=== PATIENT | female | born 1980 | race Caucasian/White ===

== ENCOUNTER 2016-11-07 13:54 | Emergency (ER) | payer BC, OTHER ==
[2016-11-07 17:03] VITALS: BP 120/76
--- NOTE | 2016-11-07 18:35 | UC ---
Skin Complaint HPI - HPI Summary HPI Summary: PATIENT ARRIVES TO WITH CC OF DIFFUSE PUSTULE RASH OVER BODY X 2 DAYS. SHE STATES SHE HAD HER HAIR DYED 5 DAYS AGO, AND COULD HAVE CAUSED A REACTION, BUT RASH IS NOT WORSE ON HEAD THAN BODY. THE RASH IS DIFFUSE, PUSTULAR WITH EXTREME PRURITIS. CONVALESCING PUSTULES LOCATED ON ANTERIOR SHINS BILATERALLY. PATIENT HAS A HISTORY OF PSORIASIS, BUT STATES HAS NEVER BEEN BAD ENOUGH THAT SHE HAS NEEDED TO GO ON MEDICATION. SHE HAS TRIED OTC HYDROCORTISONE AND BENADRYL WITHOUT RELIEF. SHE HAS TRIED OATMEAL BATHS. PUSTULES ARE NOT GETTING BETTER OR WORSE. SHE STATES THE PUSTULES BEGAN ON HER SHINS AROUND THE SITE OF A PSORIASIS PLAQUE AND ARE NOT DIFFUSELY SPREAD THROUGHOUT WITH ONLY CONVALESCING AREAS OVER THE SHINS. SHE ENDORSES CLEAR FLUID FROM THE SITES. SHE HAS NEVER HAD THIS BEFORE AND NOTHING HAS MADE IT BETTER. SHE STATES SHE HAS NEVER HAD THE CHICKEN POX BEFORE. DENIES FEVER. - History of Current Complaint Chief Complaint: Ras Stated Complaint: RASH Hx Obtained From: Patient Hx Last Menstrual Period: 10/17/16 ?: No Onset/Duration: Sudden Onset Skin Exposure Onset/Duration: Days Ago Timing: Constant Onset Severity: Severe Current Severity: Severe Pain Intensity: 0 Pain Scale Used: Adult Non Verbal Location: Diffuse Character: Swelling, Pruritus, Hives, Redness, Raised Aggravating: Nothing Alleviating: Nothing, Unknown Associated Signs & Symptoms: Positive: Negative Related History: Possible Reaction to: Environmental Exposure - HAIR DYE - Allergy/Home Medications Allergies/Adverse Reactions: Allergies Allergy/AdvReac Type Severity Reaction Status Date / Time No Known Allergies Allergy Verified 11/07/16 16:56 Home Medications: Home Medications Folic Acid 20 mg PO 11/07/16 [History] Lamotrigine [Lamictal] 100 mg PO 11/07/16 [History] Oxcarbazepine [Trileptal 600 MG tab] 600 mg PO 11/07/16 [History] clonazePAM TAB(*) [KlonoPIN TAB(*)] 1 mg PO BEDTIME PRN 11/07/16 [History Confirmed 11/07/16] Review of Systems Constitutional: Negative Skin: Rash Eyes: Negative ENT: Negative Respiratory: Negative Cardiovascular: Negative Gastrointestinal: Negative Neurovascular: Negative Psychological: Negative All Other Systems Reviewed And Are Negative: Yes PMH/Surg Hx/FS Hx/Imm Hx Previously Healthy: Yes - Surgical History Surgical History: None - Family History Known Family History: Positive: Unknown - Social History Occupation: Employed Full-time Lives: With Family Alcohol Use: None Substance Use Type: None Smoking Status (MU): Never Smoked Tobacco Physical Exam Triage Information Reviewed: Yes Appearance: Well-Appearing, Well-Nourished Vital Signs: Initial Vital Signs Temp 98.7 F 11/07/16 16:50 Pulse 67 11/07/16 16:50 Resp 20 11/07/16 16:50 BP 120/76 11/07/16 16:50 Pulse Ox 100 11/07/16 16:50 Vital Signs Reviewed: Yes Eye Exam: Normal Eyes: Positive: Conjunctiva Clear ENT Exam: Normal ENT: Positive: Normal ENT inspection Dental Exam: Normal Neck exam: Normal Neck: Positive: Supple, No Lymphadenopathy Respiratory Exam: Normal Respiratory: Positive: Chest non-tender Cardiovascular Exam: Normal Cardiovascular: Positive: RRR Musculoskeletal: Positive: Strength Intact, No Edema Skin: Positive: rashes - DIFFUSE PUSTULAR RASH OVER ENTIRE BODY INCLUDING FACE, PRURITIS Course/Dx - Course Course Of Treatment: PATIENT TREATED FOR DERMATITIS. SOME PUSTULES HAD DEW DROP ON A WENDY PETAL LOOK AND PATIENT DENIES OFFICIAL CHICKEN POX A CHILD. PREDNISONE AND ATARAX GIVEN PRESCRIPTION. ENCOURAGED HYDROCORTISONE NEEDED. FOLLOW UP WITH PCP OR SEE A ZONING ENGINEER. PATIENT TAKEN OUT OF WORK UNTIL SATURDAY IN CASE THIS IS CHICKEN POX. - Differential Diagnoses - Skin Complaint Differential Diagnoses: Contact Dermatitis, Drug Rash, Impetigo, Varicella Zoster - Diagnoses Provider Diagnoses: DERMATITIS Discharge - Discharge Plan Condition: Stable Disposition: HOME Prescriptions: hydrOXYzine HCL TAB* [Atarax 25 MG TAB*] 25 mg PO QID PRN #20 tab MDD 4 PRN Reason: Pain predniSONE TAB* [Deltasone TAB*] 50 mg PO DAILY #6 tab Patient Education Materials: Dermatitis (ED) Forms: *Work Release Referrals: Ming Deng MD [Primary Care Provider] - Additional Instructions: Take prednisone and atarax as prescribed follow up with PCP if symptoms fail to improve, call a video control operator, go see your PCP, or come back to
== END 2016-11-07 18:00 | disposition home or self-care (01) ==
LOC: UCEAST 13:54
DX: L30.9 Dermatitis, unspecified (principal)
CPT/HCPCS: 99212; G0463

== ENCOUNTER → 2018-06-04 | Emergency (ER) | payer BC ==
[~2018-06-04] MED LIST: NS 0.9% 1000 ML* 2,000 ML IV ONE
--- OUTSIDE RECORDS SUMMARY | 2018-06-04 11:14 | XMS REPORT ---
:1980 External Reference #:[id number] Author Organization [employer] Address [address] [place] [address] Phone [phone] Care Team Providers Name Role Phone Sonia Boggs MD Primary Care Physician Unavailable Payers Type Date Identification Numbers Payment Provider Subscriber Commercial Policy Number: [id number] BS Facets Candy Nowak PayID: [id number] [address] [address] [place] [address] Problems Date Description Provider Status Onset: 11/27/2016 Seizure disorder Roney Fox NP Active Onset: 02/24/2018 Impacted nicoumen Sal Forbes M.D. Active Onset: 02/24/2018 Acute otitis externa Sal Forbes M.D. 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 Smoked Cigarettes Cigars Never Smoked Cigars Pipe Never Smoked A Pipe Smokeless Tobacco Never Used Smokeless Tobacco ETOH Use Denies alcohol use Smoking Patient has never smoked Recreational Drug Use Denies Drug Use Daily Caffeine Consumes on average 4 cups of regular coffee per day Exercise Type/Frequency Exercises regularly Allergies, Adverse Reactions, Alerts Date Description Reaction Status Severity Comments 08/27/2016 NKDA active Medications Medication Date Status Form Strength Qnty SIG Indications Ordering Provider Sulfamethoxazole/ 05/07/ Hx Tablets 800-160mg 14tab one by N39.0 Karie Trimethoprim DS 2018 - s mouth Varn, 05/14/ twice a N.P. 2018 day for 7 days Phenazopyridine 05/07/ Hx Tablets 100mg 9tabs 1 tablet N39.0 Karie HCL 2018 - by mouth Varn, 05/10/ three N.P. 2018 times a day as needed Clonazepam / Active Tablets 1mg 1 tab at Unknown 0000 bedtime Oxcarbazepine / Active Tablets 600mg 1 tab by Unknown 0000 mouth three times daily Lamotrigine / Active Tablets 100mg 3 tabs in Unknown 0000 am, 2 tab in afternoon and 4tabs at bedtime Folic Acid / Active Tablets 1mg take one Unknown 0000 tablet daily by mouth Formula / Active Capsules 28-0.8-235 1 tab Unknown 0000 mg daily by mouth Amoxicillin/Clavu 04/01/ Hx Tablets 875-125mg 20tab take one Roney lanate Potassium 2016 - s tablet q12 IMAN Fox 04/11/ hours for 2017 10 days Tramadol HCL 04/01/ Hx Tablets 50mg 28tab 1-2 H92.03 Roney 2017 - s tablets IMAN Fox 04/09/ every 12 2017 hours as needed for pain. Mupirocin 11/22/ Hx Ointment 2% 22uni apply thin R21 Roney 2017 - ts film of IMAN Fox 11/22/ ointment 2017 to the affected area(s) three times daily for 10-14 days Betamethasone 11/22/ Hx Cream 0.05% 45gm apply thin R21 Roney Dipropionate 2017 - layer to IMAN Fox 11/22/ affected 2017 areas twice daily. Vital Signs Date Vital Result Comment 05/07/2018 Height 69 inches 5'9" Weight 152.00 lb Heart Rate 68 /min BP Systolic 120 mmHg BP Diastolic 77 mmHg Body Temperature 97.4 F O2 % BldC Oximetry 100 % BMI (Body Mass Index) 22.4 kg/m2 02/24/2018 Height 69 inches 5'9" Weight 158.00 lb Heart Rate 78 /min BP Systolic Sitting 120 mmHg BP Diastolic Sitting 62 mmHg Respiratory Rate 18 /min Pain Level 0 BMI (Body Mass Index) 23.3 kg/m2 04/01/2017 Heart Rate 63 /min BP Systolic Sitting 118 mmHg BP Diastolic Sitting 80 mmHg Body Temperature 98.6 F O2 % BldC Oximetry 98 % 11/22/2016 Height 68 inches 5'8" Weight 162.50 lb Heart Rate 68 /min BP Systolic Sitting 100 mmHg BP Diastolic Sitting 60 mmHg Respiratory Rate 16 /min Body Temperature 99.1 F BMI (Body Mass Index) 24.7 kg/m2 08/27/2016 Height 69 inches 5'9" Weight 148.00 lb Heart Rate 64 /min BP Systolic Sitting 104 mmHg BP Diastolic Sitting 60 mmHg Respiratory Rate 16 /min Pain Level 0 BMI (Body Mass Index) 21.9 kg/m2 Results Test Date Test Result H/L Range Note CBC Auto Diff 08/09/2017 White Blood Count 7.2 10^3/uL 3.5-10.8 Red Blood Count 4.11 10^6/uL 4.0-5.4 Hemoglobin 13.8 g/dL 12.0-16.0 Hematocrit 40 % 35-47 Mean Corpuscular Volume 97 fL 80-97 Mean Corpuscular Hemoglobin 33 pg High 27-31 Mean Corpuscular HGB Conc 34 g/dL 31-36 Red Cell Distribution Width 13 % 10.5-15 Platelet Count 182 10^3/uL 150-450 Mean Platelet Volume 8 um3 7.4-10.4 Abs Neutrophils 4.2 10^3/uL 1.5-7.7 Abs Lymphocytes 1.6 10^3/uL 1.0-4.8 Abs Monocytes 0.4 10^3/uL 0-0.8 Abs Eosinophils 0.9 10^3/uL High 0-0.6 Abs Basophils 0.1 10^3/uL 0-0.2 Abs Nucleated RBC 0 10^3/uL Granulocyte % 58.0 % 38-83 Lymphocyte % 22.8 % Low 25-47 Monocyte % 5.6 % 1-9 Eosinophil % 12.8 % High 0-6 Basophil % 0.8 % 0-2 Nucleated Red Blood Cells % 0 Comp Metabolic Panel 08/09/2017 Sodium 130 mmol/L Low 133-145 Potassium 4.0 mmol/L 3.5-5.0 Chloride 97 mmol/L Low 101-111 Co2 Carbon Dioxide 28 mmol/L 22-32 Anion Gap 5 mmol/L 2-11 Glucose 80 mg/dL 70-100 Blood Urea Nitrogen 10 mg/dL 6-24 Creatinine 0.82 mg/dL 0.51-0.95 BUN/Creatinine Ratio 12.2 8-20 Calcium 8.3 mg/dL Low 8.6-10.3 Total Protein 5.8 g/dL Low 6.4-8.9 Albumin 3.8 g/dL 3.2-5.2 Globulin 2.0 g/dL 2-4 Albumin/Globulin Ratio 1.9 1-3 Total Bilirubin 0.50 mg/dL 0.2-1.0 Alkaline Phosphatase 65 U/L 34-104 Alt 13 U/L 7-52 Ast 13 U/L 13-39 Egfr Non- 78.9 >60 Egfr 101.4 >60 1 Laboratory test finding 08/09/2017 Magnesium 1.9 mg/dL 1.9-2.7 Quantiferon Gold TB 08/09/2017 M tuberculosis by Negative Negative 2 Quantiferon TB Ag minus Nil Result 0 IU/mL TB Mitogen minus Nil Result > 10.00 IU/mL TB Nil Result 0.02 IU/mL 3 Wound Culture/Sensi 04/01/2017 Wound/Misc Culture-Gram Stain SEE RESULT BELOW 4 1 Because ethnic data is not always readily available, this report includes an eGFR for both -Americans and non- Americans. The National Kidney Disease Education Program (NKDEP) does not endorse the use of the MDRD equation for patients that are not between the ages of 18 and 70, are , have extremes of body size, muscle mass, or nutritional status, or are non- or non-. According to the National Kidney Foundation, irrespective of diagnosis, the stage of the disease is based on the level of kidney function: Stage Description GFR(mL/min/1.73 m(2)) 1 Kidney damage with normal or decreased GFR 90 2 Kidney damage with mild decrease in GFR 60-89 3 Moderate decrease in GFR 30-59 4 Severe decrease in GFR 15-29 5 Kidney failure <15 (or dialysis) 2 No interferon-gamma response to M. tuberculosis antigens was detected. Infection with M. tuberculosis is unlikely. A negative result alone does not exclude infection with M. tuberculosis. For detailed information regarding test interpretation see: www.Voolgo/test-catalog/ Clinical+and+Interpretive/48591 3 Test Performed by: [facility] - [facility] [address] [place] [address], [place] [address] 4 SEE RESULT BELOW Name: CANDY NOWAK : [address]: Roney Fox NP Acct: [id number] Unit: [id number] AGE: 36 Location: [facility] Re04/01/17 SEX: F Status: REG REF SPEC: [id number] ABELINO: 04/01/17-[address]: Roney Fox NP REQ: [id number] RECD: 04/01/17 STATUS: COMP _ SOURCE: MISC SOURC SPDESC: ORDERED: Culture Stain COMMENTS: [id number] Specimen Description ear exudate Procedure Result Reported Site Wound/Misc Gram Stain Final 04/02/17- 730 ML 1+ Neutrophils 1+ Epithelial Cells 4+ Gram Positive Bacilli Wound/Misc Culture Final 04/03/17- 1100 ML Organism 1 NORMAL LOREE Quantity 1+ * ML - MAIN LAB ([facility]) . END OF REPORT * ML=Testing performed at Main Lab DEPARTMENT OF PATHOLOGY, [address] [place] [address] Jt Espinoza M.D. Director [facility] # [id number] Procedures Date CPT Code Description Status 02/24/2018 29152 Remove Impacted Cerumen Completed 10/11/2017 06585 Biopsy Skin Lesion Single Completed Encounters Type Date Location Provider CPT E/M Dx Office Visit 02/24/2018 [facility], [address] H60.541 3:45p [facility] [place] H61.23 Office Visit 10/11/2017 8:20a [facility] [place] [address] Z79.899 L30.9 Office Visit 08/06/2017 4:10p [facility] [place] [address] L40.0 Office Visit 07/01/2017 4:30p [facility] [place] [address] L40.0 Office Visit 04/01/2017 2:20p [facility] [place] [address] H92.03 Peculiar Office Visit 12/21/2016 10:10a [facility] [place] [address] L40.0 Office Visit 12/10/2016 8:00a [facility] [place] [address] L30.9 L82.1 L91.8 Office Visit 11/23/2016 8:20a [facility] [place] [address] L30.9 Office Visit 11/22/2016 3:40p [facility] [place] [address] R21 - Peculiar Office Visit 08/27/2016 10:00a [facility], [address] G56.01 Haris Hunt G56.02 R20.0 R20.2 Plan of Care 05/07/2018 - Karie Verma N.P.N39.0 Urinary tract infection, site not specifiedNew Medication:Sulfamethoxazole/Trimethoprim DS 800-160 mgPhenazopyridine HCL 100 mgNew Labs:Ua RoutineUrine Culture And SensitivitiesComments:For your urinary tract infection:I sent a prescription to the pharmacy for Bactrim DS, take one by mouth twice daily for 7 days.Avoid bladder irritants: coffee, tea, sterling, alcohol, and spicy foods.I am sending a specimen for culture, the office will call if you need a different antibiotic. If symptoms persist call the office.
--- OUTSIDE RECORDS SUMMARY | 2018-06-04 11:14 | XMS REPORT ---
:1980 External Reference #:[id number] Author Organization [employer] Address [address] [place] [address] Phone [phone] Care Team Providers Name Role Phone Sonia Boggs MD Primary Care Physician Unavailable Payers Type Date Identification Numbers Payment Provider Subscriber Commercial Policy Number: [id number] BS [employer]ets Tran Nowak PayID: [id number] [address] [address] [place] [address] Problems Date Description Provider Status Onset: 11/27/2016 Seizure disorder Roney Fox NP Active Onset: 02/24/2018 Impacted cerumen Sal Forbes M.D. Active Onset: 02/24/2018 Acute otitis externa Sal Forbes M.D. 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 Cigarette Use Never Smoked Cigarettes Cigars Never [...] Form Strength Qnty SIG Indications Ordering Provider Clonazepam 00/00/ Active Tablets 1mg 1 tab at Unknown 0000 bedtime Oxcarbazepine 0000/ Active Tablets 600mg 1 tab by Unknown 0000 mouth three times daily Lamotrigine / Active Tablets 100mg 3 tabs in Unknown 0000 am, 2 tab in afternoon and 4tabs at bedtime Folic Acid / Active Tablets 1mg take one Unknown 0000 tablet daily by mouth Formula / Active Capsules 28-0.8-235 1 tab Unknown 0000 mg daily by mouth Sulfamethoxazole/ 05/07/ Hx Tablets 800-160mg 14tab one by N39.0 Karie Trimethoprim DS 2018 - s mouth Varn, 05/14/ twice a N.P. 2018 day for 7 days Phenazopyridine 05/07/ Hx Tablets 100mg 9tabs 1 tablet N39.0 Karie HCL 2018 - by mouth Varn, 05/10/ three N.P. 2018 times a day as needed Amoxicillin/Clavu 04/01/ Hx Tablets 875-125mg 20tab take [...] daily. Vital Signs Date Vital Result Comment 05/21/2018 Height 69 inches 5'9" Weight 150.00 lb Heart Rate 74 /min BP Systolic 100 mmHg BP Diastolic 60 mmHg Body Temperature 97.4 F O2 % BldC Oximetry 98 % BMI (Body Mass Index) 22.1 kg/m2 05/07/2018 Height 69 inches 5'9" Weight 152.00 [...] Test Date Test Result H/L Range Note Ua Routine 05/07/2018 Ua Specific [place] 1.020 Ua PH 5 Ua Color dark yellow Ua Appera cloudy Ua WBC trace Ua Protein +30 Ua Glucose normal Ua Ketones neg. Ua Bilirubin neg. Ua Urobilinogen normal Ua Nitrite neg Ua Occult Blood about 250 Yohannes/ul Urine Culture And 05/07/2018 Urine Culture SEE RESULT BELOW 1 Sensitivities CBC Auto Diff 08/09/2017 White Blood Count [...] Egfr Non- 78.9 >60 Egfr 101.4 >60 2 Laboratory test finding 08/09/2017 Magnesium 1.9 mg/dL 1.9-2.7 Quantiferon Gold TB 08/09/2017 M tuberculosis by Negative Negative 3 Quantiferon TB Ag minus Nil Result 0 IU/mL TB Mitogen minus Nil Result > 10.00 IU/mL TB Nil Result 0.02 IU/mL 4 Wound Culture/Sensi 04/01/2017 Wound/Misc Culture-Gram Stain SEE RESULT BELOW 5 1 SEE RESULT BELOW Name: TRAN NOWAK : [address]: Karie Verma NP Acct: [id number] Unit: [id number] AGE: 37 Location: [facility] Re05/07/18 SEX: F Status: REG REF SPEC: [id number] ABELINO: 05/07/181402 SUBM DR: Karie Verma NP REQ: [id number] RECD: 05/07/18 STATUS: COMP _ SOURCE: URINE SPDESC: ORDERED: Urine Culture COMMENTS: [id number] Urine Source: Random Procedure Result Reported Site Urine Culture Final 05/09/18- 09 ML Mixed loree; possible contamination. Suggest resubmission. * ML - Main Lab . END OF REPORT DEPARTMENT OF PATHOLOGY, [address] [place] [address] Jt Espinoza M.D. Director [facility] # [id number] 2 Because ethnic data is not always readily [...] 15-29 5 Kidney failure <15 (or dialysis) 3 No interferon-gamma response to M. tuberculosis antigens was detected. Infection with M. tuberculosis is unlikely. A negative result alone does not exclude infection with M. tuberculosis. For detailed information regarding test interpretation see: www.ClearAccess/test-catalog/ Clinical+and+Interpretive/59227 4 Test Performed by: [facility] - [address] [address] 5 SEE RESULT BELOW Name: TRAN NOWAK : [address]: Roney Fox EXCHANGE TELLER Acct: [id number] Unit: [id number] AGE: 36 Location: [facility] Re04/01/17 SEX: F Status: REG REF SPEC: [id number] ABELINO: 04/01/17-[address]: Roney Fox NP REQ: [id number] RECD: 04/01/17 STATUS: COMP _ SOURCE: MISC SOURC SPDESC: ORDERED: Culture Stain COMMENTS: [id number] Specimen Description ear exudate Procedure Result Reported Site Wound/Misc Gram Stain Final 04/02/17- 0731 ML 1+ Neutrophils 1+ Epithelial Cells 4+ Gram Positive Bacilli Wound/Misc Culture Final 04/03/17- 1100 ML Organism 1 NORMAL LOREE Quantity 1+ * ML - MAIN LAB ([facility]) . END OF REPORT * ML=Testing performed at Main Lab DEPARTMENT OF PATHOLOGY, [address] [place] [address] Jt Espinoza M.D. Director [facility] # [id number] Procedures Date CPT Code Description Status 02/24/2018 60408 Remove Impacted Cerumen Completed 10/11/2017 12809 Biopsy Skin Lesion Single Completed Encounters Type Date Location Provider CPT E/M Dx Office Visit 05/07/2018 [facility] [place] [address] L23.9 7:50a Office Visit 02/24/2018 [facility], [address] H60.541 3:45p AT [place] H61.23 Office Visit 10/11/2017 8:20a [facility] [place] [address] Z79.899 L30.9 Office Visit 08/06/2017 4:10p [facility] [place] [address] L40.0 Office Visit 07/01/2017 4:30p [facility] [place] [address] L40.0 Office Visit 04/01/2017 2:20p [facility] [place] [address] H92.03 [place] Office Visit 12/21/2016 10:10a [facility] [place] [address] L40.0 Office Visit 12/10/2016 8:00a [facility] [place] [address] L30.9 L82.1 L91.8 Office Visit 11/23/2016 8:20a [facility] [place] [address] L30.9 Office Visit 11/22/2016 3:40p [facility] [place] [address] R21 - [place] Office Visit 08/27/2016 10:00a [facility], [address] G56.01 Haris Hunt G56.02 R20.0 R20.2 Plan of Care 05/21/2018 - Karie Verma NAshPAshN39.0 Urinary tract infection, site not specifiedNew Labs:Ua RoutineComments:For your urinary symptomsI am sending a specimen for culture, the office will contact you.R53.81 Other malaiseComments: To further evaluate your fatigue I have oerdered a series of blood tests. I will contact you with your results.
[2018-06-04 12:00] LABS: ABS Basophils 0 10^3/ul (0-0.2); ABS Eosinophils 0.2 10^3/ul (0-0.6); ABS Lymphocytes 1.4 10^3/ul (1.0-4.8); ABS Monocytes 0.5 10^3/ul (0-0.8); ABS Neutrophils 4.4 10^3/ul (1.5-7.7); ABS Nucleated RBC 0 10^3/ul; Eosinophil % 2.4 % (0-6); Hematocrit 39 % (35-47); Hemoglobin 13.3 g/dl (12.0-16.0); Mean Corpuscular HGB Conc 35 g/dl (31-36); Mean Corpuscular Hemoglobin 34 pg (27-31); Mean Corpuscular Volume 98 fL (80-97); Mean Platelet Volume 7.3 um3 (7.4-10.4); Nucleated Red Blood Cells % 0; Platelet Count 157 10^3/ul (150-450); Red Blood Count 3.94 10^6/ul (4.00-5.40); Red Cell Distribution Width 12 % (10.5-15); White Blood Count 6.5 10^3/ul (3.5-10.8)
[2018-06-04 12:06] LABS: INR 0.93 (0.77-1.02)
--- NOTE | 2018-06-04 12:11 | ED ---
Neurological HPI - HPI Summary HPI Summary: This patient is a 37 year old F presenting to [facility] accompanied by her Nickolas with a chief complaint of gradual onset bilateral blurry vision, left arm numbness and left hand numbness since 1020am today. PMHx petit-mal seizures. Pt was sitting at work and became unable to focus secondary to bilateral blurred vision, L arm numbness, weakness, and paresthesia down to hand , difficulty ambulating secondary to dizziness, 4/10 CRAWLEY (alleviated with closing eyes), and mild nausea. She denies fever, cough, rhinorrhea, and neck pain. Her neurologist is Dr. Louis at [facility]. Rx lamictal, trileptal, clonazepam 1 mg (anxiety). She denies seizure today, which usually consists of dropping to her knees, putting hands in air, stiffening, no LOC, and lasting for 10 seconds. She does not feel like a seizure is coming on now. She endorses similar sx in past, but they tend to spontaneously resolve more quickly than today. She endorses receiving a flu shot this year. LMP 05/19/18 (normal menses) , denies possibility of . She denies substance use, EtOH use. FHx mother seizure disorder. PMHx eczema BL anterior shins. Pt states her last seizure was months ago, and they are usually brought on by blood level imbalance (hx hyponatremia) or sickness. Pt denies taking anything additional to meds for her sxs today. Pt had an MRI with Dr. Louis in 2018, a few months ago. - History of Current Complaint Chief Complaint: EDNeurologicalDeficit Stated Complaint: DOUBLE VISION,LEFT HAND NUMB Time Seen by Provider: 06/04/18 11:32 Hx Obtained From: Patient, Medical Records - requested, Other: - Hx Last Menstrual Period: 05/19/18 Onset/Duration: Gradual Onset, Still Present Timing: Constant Onset Severity: Moderate Current Severity: Moderate Number of Seizures: 0 Neurological Deficit Location: LUE Headache Location: Diffuse (Right), Diffuse (Left) Pain Intensity: 4 Pain Scale Used: 0-10 Numeric Character: Dizzy, Paresthesia - LUE, Motor Weakness - bilat UE, Sensory Loss - LUE, Visual Changes - blurred Aggravating: Nothing Alleviating: Closing Eyes Associated Signs and Symptoms: Positive: Visual Changes, Headache, Weakness - bilat UE, Dizziness, Numbness - LUE, Nausea/Vomiting - nausea. Negative: Fever , Neck Pain/Stiffness Related Hx: Medication Comliant - compliant, Seizure - petit mal - Allergy/Home Medications Allergies/Adverse Reactions: Allergies Allergy/AdvReac Type Severity Reaction Status Date / Time No Known Allergies Allergy Verified 06/04/18 10:54 Home Medications: Home Medications Folic Acid 20 mg PO DAILY 06/04/18 [History Confirmed 06/04/18] Vit 108/Iron/Folic AC [ One Tablet] 1 each PO DAILY 06/04/18 [ History Confirmed 06/04/18] lamoTRIgine TAB(*) [Lamictal TAB(*)] 200 mg PO .AT NOON 06/04/18 [History Confirmed 06/04/18] lamoTRIgine TAB(*) [Lamictal TAB(*)] 300 mg PO QAM 06/04/18 [History Confirmed 06/04/18] lamoTRIgine TAB(*) [Lamictal TAB(*)] 400 mg PO BEDTIME 06/04/18 [History Confirmed 06/04/18] PMH/Surg Hx/FS Hx/Imm Hx Previously Healthy: No Endocrine/Hematology History: Denies: Hx Sickle Cell Disease Respiratory History: Denies: Hx Lung Cancer Sensory History: Denies: Hx Legally Blind, Hx Deafness Opthamlomology History: Denies: Hx Legally Blind EENT History: Denies: Hx Deafness Neurological History: Reports: Hx Seizures Psychiatric History: Reports: Hx Anxiety - Surgical History Surgery Procedure, Year, and Place: none Infectious Disease History: No Infectious Disease History: Denies: Traveled Outside the [place] in Last 30 Days - Family History Known Family History: Positive: Seizure Disorder - mother - Social History Occupation: Employed Full-time Lives: With Family Alcohol Use: None Substance Use Type: Reports: None Smoking Status (MU): Never Smoked Tobacco Review of Systems Negative: Fever Positive: Blurred Vision Negative: Nasal Discharge Negative: Cough Positive: Nausea Positive: no symptoms reported Negative: Arthralgia - neck Positive: Rash - BLE anterior tibiae Positive: Headache - 4/10, Weakness - BUE, Paresthesia - LUE, Numbness - LUE Psychological: Normal All Other Systems Reviewed And Are Negative: Yes Physical Exam - Summary Physical Exam Summary: Appearance: Well-appearing, minimal pain distress, well-nourished Skin: Warm, color reflects adequate perfusion, dry, eczema on bilateral anterior tibiae Head: Normal Head/Face inspection, atraumatic Eyes: Conjunctiva clear, PERRL, EOMI, no nystagmus ENT: Normal inspection, mucosal membranes moist Neck: Supple, no nodes, no JVD Respiratory: Lungs clear, normal breath sounds, no respiratory distress Cardio: RRR, No murmur, pulses normal, brisk capillary refill Abdomen: Soft, minimal suprapubic tenderness, non-distended, no guarding, no rebound Bowel sounds: Present Musculoskeletal: Strength Intact/ROM intact, no calf tenderness, no edema. Psychological: Normal Neuro: A&O x3, CN II-XII intact, motor function 5/5, sensation intact, cerebellar normal. GCS 15. Has decreased sensation L arm but can tell I am touching her Triage Information Reviewed: Yes Vital Signs On Initial Exam: Initial Vitals Temp Pulse Resp BP Pulse Ox 98.4 F 76 16 133/77 100 06/04/18 10:51 06/04/18 10:51 06/04/18 10:51 06/04/18 10:51 06/04/18 10:51 Vital Signs Reviewed: Yes - Cortez Coma Scale Best Eye Response: 4 - Spontaneous Best Motor Response: 6 - Obeys Commands Best Verbal Response: 5 - Oriented Coma Scale Total: 15 Diagnostics - Vital Signs Vital Signs Temp Pulse Resp BP Pulse Ox 06/04/18 10:51 98.4 F 76 16 133/77 100 - Laboratory Lab Results: Lab Results 06/04/18 Range/Units 11:47 WBC 6.5 (3.5-10.8) 10^3/ul RBC 3.94 L (4.00-5.40) 10^6/ul Hgb 13.3 (12.0-16.0) g/dl Hct 39 (35-47) % MCV 98 H (80-97) fL MCH 34 H (27-31) pg MCHC 35 (31-36) g/dl RDW 12 (10.5-15) % Plt Count 157 (150-450) 10^3/ul MPV 7.3 L (7.4-10.4) um3 Neut % (Auto) 67.3 (38-83) % Lymph % (Auto) 22.0 L (25-47) % [place] % (Auto) 7.6 H (0-7) % Eos % (Auto) 2.4 (0-6) % Baso % (Auto) 0.7 (0-2) % Absolute Neuts (auto) 4.4 (1.5-7.7) 10^3/ul Absolute Lymphs (auto) 1.4 (1.0-4.8) 10^3/ul Absolute Monos (auto) 0.5 (0-0.8) 10^3/ul Absolute Eos (auto) 0.2 (0-0.6) 10^3/ul Absolute Basos (auto) 0 (0-0.2) 10^3/ul Absolute Nucleated RBC 0 10^3/ul Nucleated RBC % 0 Result Diagrams: 06/04/18 11:47 06/04/18 11:47 Lab Statement: Any lab studies that have been ordered have been reviewed, and results considered in the medical decision making process. NIH Scale - NIH Scale Level of Consciousness: Alert/Keenly Responsive Ask Patient the Month and His/Her Age: Both Correct Ask Pt to Open/Close Eyes and Communication Professor/Release Non-Paretic Hand: Both Correctly Best Gaze (Only Horizontal Eye Movement): Normal Visual Field Testing: No Visual Loss Facial Paresis-Pt to Smile & Close Eyes or Grimace Symmetry: Normal/Symmetrical Motor Function - Right Arm: No Drift-Holds 10 Seconds Motor Function - Left Arm: No Drift-Holds 10 Seconds Motor Function - Right Leg: No Drift-Holds 10 Seconds Motor Function - Left Leg: No Drift-Holds 10 Seconds Limb Ataxia-Must be out of Proportion to Weakness Present: Absent Sensory (Use Pinprick to Test Arms/Legs/Trunk/Face): Normal Best Language (Describe Picture, Name Items): No Aphasia Dysarthria (Read Several Words): Normal Extinction and Inattention: No Abnormality Total Score: 0 Re-Evaluation - Re-Evaluation First Eval Re-Evaluation Time: 12:34 Change: Unchanged Comment: Discussing lab tests, MRI, and neuro consult. Still with mild CRAWLEY, declines pain medication. Explained MRI, states she had an MRI in [address] Louis, advised to remain NPO. still with pt. Second Eval Re-Evaluation Time: 14:30 Change: Improved Comment: Per Dr. Villalobos, neurologist, pt may be DC'd without MRI as sxs have improved and pt had MRI a few months ago. Course/Dx - Course Course Of Treatment: A 37-year-old F presents to the ED with a CC of blurred vision and left arm and hand numbness since 1020am today. (+) bilateral blurred vision, L arm numbness, weakness, and paresthesia down to hand, difficulty ambulating secondary to dizziness, 4/10 CRAWLEY (alleviated with closing eyes), and mild nausea. (-) fever, cough, rhinorrhea, SHx, and neck pain. PMHx similar sx, petit-mal szs. Pt was sitting down at work, then gradual onset blurred vision, LUE numbness, dizziness. She denies feeling seizure onset upcoming, denies seizure today or for past couple of months. A typical seizure entails dropping to knees, arms up in air, no LOC, lasting about 10 seconds. In the ED course, pt was given nl saline. Pt labs show low RBC, high MCV, high MCH, low MPV, low lymph %, high mono %, low Na+, low Cl-, and low carbamazepine level. Revieweing lab work from 05/30/18 (hyponatremia) MRI will be at 1445. MRI later cancelled per Dr. Villalobos with pt's resolution of sxs. - Differential Dx Differential Diagnoses Neuro: Positive: Cerebrovascular Accident, Drug Toxicity , Headache, Medication Reaction, Metabolic Abnormality, Migraine, Seizure Disorder - Diagnoses Provider Diagnoses: Acute headache, Hx of seizure disorder, Transient neurological symptoms, Hyponatremia with decreased serum osmolality - Physician Notifications Discussed Care Of Patient With: Heidi Villalobos Time Discussed With Above Provider: 12:11 Instructed by Provider To: Other - Recommends MRI, does not need EEG or CT at this time. Will see pt in ED. Is not a code cohen. Discharge - Sign-Out/Discharge Documenting (check all that apply): Patient Departure - discharge - Discharge Plan Condition: Stable Disposition: HOME Prescriptions: OXcarbazepine TAB(*) [Trileptal 300 mg TAB(*)] 300 mg PO SEE INSTRUCTIONS #150 tab Patient Education Materials: Acute Headache (ED) Referrals: Sonia Boggs MD [Primary Care Provider] - 2 Days Mk Louis MD [Medical Doctor] - As Soon As Possible Additional Instructions: You should decrease your trileptal to 300mg, 600mg then 600mg three times a day. You should also continue your other medications. You need repeat blood work within a week from your primary care provider. You also need to see Dr. Louis within one month. Return to the ER if you have new or worsening symptoms. - Billing Disposition and Condition Condition: STABLE Disposition: Home - Attestation Statements Document Initiated by Joby: Yes Documenting Scribe: Kyle Allen Provider For Whom Joby is Documenting (Include Credential): Dr. Kirti Fitzgerald MD Scribe Attestation: Kyle Pacheco, scribed for Dr. Kirti Fitzgerald MD on 06/09/18 at 1113. Scribe Documentation Reviewed: Yes Provider Attestation: The documentation as recorded by the Kyle hickey accurately reflects the service I personally performed and the decisions made by me, Dr. Kirti Fitzgerald MD Consult Consult: [id number] Dr. Villalobos: Recommends cancel MRI, discharge, and that pt decreases trileptil from 3 doses of 600 mg to 300mg in AM, then 600, 600.
[2018-06-04 12:17] LABS: EGFR Non-African American 94.7 (>60)
[2018-06-04 15:20] VITALS: BP 118/76
--- NOTE | 2018-06-04 16:56 | CONS ---
NEUROLOGY CONSULTATION NOTE: DATE OF CONSULT: 06/04/18 - EMERGENCY DEPT CONSULTING PROVIDER: Dr. Kriti Fitzgerald. REASON FOR CONSULT: Headaches with transient left arm numbness. CHIEF COMPLAINT: Blurry vision, headaches, and left arm numbness. HISTORY OF PRESENT ILLNESS: Mrs. Nowak is a pleasant 37-year-old right-handed female, who has history of primary generalized epilepsy, who follows up with Dr. Louis at [facility], who developed gradual symptoms of blurred vision, difficulty focusing, gradual left arm numbness, and was associated with a dull 5 /10 headache that affected the head diffusely. The patient was at work at around 10:20 a.m. this morning when the symptoms started. I assessed the patient at approximately 1400 today where she reports complete resolution of her symptoms other than just a mild headache that she graded as 3/10. She has had very similar symptoms in the past, one 5 years ago and the other she was unable to recall. The symptoms usually last for an hour or 2 and resolve, very typical to what she is experiencing today. It is unclear what she was having and she was always hospitalized in the ER at [facility], but always discharged home. She has had an MRI of the brain one in 2006 and another in 2018 that showed no evidence of acute intracranial abnormalities. She does not have history of migraines, but she has headaches occasionally. She does not take any medication for the headaches. In regards to her epilepsy history, the patient was diagnosed with "petit mal seizures" when she was 8 years of age. She was following with Dr. Goldsmith. She was trialed on the following medications: Depakote, Tegretol, phenytoin, phenobarbital with minimal to no benefit. She was started on Trileptal 600 mg t.i.d. and lamotrigine 300 mg in the morning, 200 in the afternoon and 400 at night. It seems like this is the best combination so far; however, she does have complication of Trileptal-induced hyponatremia with current sodium level of 126. She had a followup appointment with Dr. Louis, but she canceled it. Her last seizure was 3 months ago. Currently, she has myoclonic-like seizures only lasting for 10 seconds and mostly occurring at night. PAST MEDICAL HISTORY: Headaches and epilepsy. MEDICATIONS: 1. Clonazepam 1 mg p.o. at bedtime as needed. 2. Folic acid 20 mg p.o. daily. 3. Lamotrigine 400 mg p.o. at bedtime, 200 mg p.o. at noon and 300 mg in the morning. 4. Oxcarbazepine 600 mg t.i.d. 5. vitamins daily. ALLERGIES: No known drug allergies. FAMILY HISTORY: Mother had seizures. Father has blood clots. SOCIAL HISTORY: She is . She has no children. She works at an orthopedic office. She does rarely smoke cigarettes. She denied alcohol use. She has 2 dogs. REVIEW OF SYSTEMS: A 14-point review of systems was obtained and otherwise negative except for what was mentioned in the HPI. PHYSICAL EXAM: Vitals: Temperature of 98.2, pulse rate of 67, respiratory rate of 16, oxygen saturation of 100% on room air, blood pressure of 118/76. General: Well-nourished, well-developed female, in no acute distress. Head: Normocephalic without obvious abnormalities. Eyes: Conjunctivae/corneas are clear. Neck is supple and symmetrical with no carotid bruits. Lungs are clear to auscultation bilaterally. Cardiovascular: Regular rate and rhythm with normal S1, S2. Extremities: Normal range of motion with no cyanosis. No hammertoes or high arches. Skin: No skin lesions or lacerations. Psych: Affect is broad and normal mood. Neurological Examination: Mental Status: Awake, alert, and oriented to person, place, time, and general circumstances. Speech and language including expression, naming, repetition, and comprehension were assessed and found to be normal. Cranial Nerves: Normal confrontation testing. Pupils are mid range and reactive. Normal consensual response. Sensation is intact on the forehead, cheeks, and jaw. No facial asymmetry. She is able to hear throughout the history process. Normal strength against resistance. Tongue is symmetrical and midline with no atrophy or fasciculation. Motor Examination: No abnormal movements. No pronator drift. Normal bulk and tone. Reflexes: 2+ throughout the upper and lower extremities. Sensation is intact to light touch and pinprick throughout. Normal [id number] and hwwn-[id number]-harr testing. No ataxia. She is able to ambulate independently. DIAGNOSTIC STUDIES/LAB DATA: WBC 6.5, hemoglobin 13.3, hematocrit 39, platelets of 157. INR of 0.93. Sodium of 126, potassium of 4.2, chloride 96. TSH 0.80. Toxicology screen was negative. ASSESSMENT AND RECOMMENDATIONS: 1. Ms. Candy Nowak is a pleasant 37-year-old female with history of primary generalized epilepsy, who presented with constellation of symptoms of blurred vision, difficulty to focus, and gradual numbness in the left upper extremity that has resolved. These symptoms were associated with a headache. The only remaining symptom that she currently has is a mild headache that seems to be spontaneously improving. The patient has had 2 similar presentations over the years. I suspect the patient has a migraine phenomenon/complicated migraines that are causing her gradual onset of neurological symptoms. The patient verbalized to me that she prefers not to undergo any MRI testing since the symptoms have resolved. She underwent an MRI testing recently this year and she can be evaluated by Dr. Louis if the symptoms return. I did inform her that if her symptoms return, she needs to come to the ED immediately for further evaluation. 2. History of primary generalized epilepsy, on lamotrigine and Trileptal. I have added oxcarbazepine and lamotrigine levels on to the previous labs to make she is not toxic on the medications. 3. Hyponatremia that I suspect is related to Trileptal use. We have agreed to decrease the Trileptal by a small small increment, 300 mg in the morning, 600 in the afternoon, 600 at night. She needs to reschedule the missed appointment with Dr. Louis and to be seen by him within the next month if possible. If she develops any seizures, she needs to go back on her original Trileptal dose. In addition, we have requested records from Dr. Louis's office. This is pending. In addition, she needs to also follow up with her primary care doctor to have the sodium rechecked after 7 to 14 days. The patient verbalized understanding. TIME SPENT: I spent a total of 60 minutes and greater than 50% of that was spent directly reviewing the medical chart, obtaining history, examining the patient, education and counseling, and discussing the treatment plan and prognosis. The patient does not need any further neurological workup at this time. She has no focal neurological deficit and she is ambulatory. She agreed to be discharged home with possibility that she may come back if she has recurrence of her symptoms. [id number]/[facility] #: [id number] [facility]
== END | disposition home or self-care (01) ==
LOC: ED 10:48
DX: R51 Headache (principal); G40.409 Other generalized epilepsy and epileptic syndromes, not intractable, without status epilepticus
CPT/HCPCS: 36415; 80053; 80156; 80175; 80307; 80320; 82550; 83605; 83735; 83930; 84443; 84702; 85025; 85610; 85730; 86703; 96360; 99283; G0480